=== PATIENT | male | born 1965 | race American Indian/Alaskan Native ===

== ENCOUNTER 2019-05-09 09:06 | Emergency (ER) | payer OTHER ==
--- NOTE | 2019-05-09 09:34 | Emergency Department Report ---
ED General Adult HPI - General Chief complaint: Extremity Problem,Nontraumatic Stated complaint: L LEG/HIP PAIN Time Seen by Provider: 05/09/19 09:22 Source: patient Mode of arrival: Ambulatory Limitations: No Limitations - History of Present Illness Initial comments: Patient is a 53-year-old male who presents to emergency room with complaints of left hip pain that radiates to his left gluteus radiating down his left leg that began 2 weeks ago. Denies any fall or injury. He denies any numbness, weakness, bowel or bladder incontinence. 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 he states he feels the pain when he first tries to get up. he states the pain feels better when he sits down for awhile. He denies ever having this in the past. He denies any past medical history, allergies medications or history of diabetes. He has a nonsmoker, occasional drinker, denies drug use. - Related Data Previous Rx's Medication Instructions Recorded Last Taken Type Cyclobenzaprine [Flexeril] 10 mg PO QHS PRN #10 tablet 05/09/19 Unknown Rx Ibuprofen [Motrin 600 MG tab] 600 mg PO Q8H PRN #20 tablet 05/09/19 Unknown Rx Prednisone [predniSONE 10 mg 10 mg PO .TAPER #1 tab.ds.pk 05/09/19 Unknown Rx (6-Day Pack, 21 Tabs)] Allergies Allergy/AdvReac Type Severity Reaction Status Date / Time No Known Allergies Allergy Unverified 05/09/19 09:11 ED Review of Systems ROS: Stated complaint: L LEG/HIP PAIN Other details as noted in HPI Comment: All other systems reviewed and negative ED Past Medical Hx - Past Medical History Previous Medical History?: No - Surgical History Past Surgical History?: No - Social History Smoking Status: Never Smoker Substance Use Type: None - Medications Home Medications: Home Medications Medication Instructions Recorded Confirmed Last Taken Type Cyclobenzaprine [Flexeril] 10 mg PO QHS PRN #10 tablet 05/09/19 Unknown Rx Ibuprofen [Motrin 600 MG tab] 600 mg PO Q8H PRN #20 tablet 05/09/19 Unknown Rx Prednisone [predniSONE 10 mg 10 mg PO .TAPER #1 tab.ds.pk 05/09/19 Unknown Rx (6-Day Pack, 21 Tabs)] ED Physical Exam - General Limitations: No Limitations General appearance: alert, in no apparent distress - Head Head exam: Present: atraumatic, normocephalic - Eye Eye exam: Present: normal appearance - ENT ENT exam: Present: mucous membranes moist - Neck Neck exam: Present: normal inspection, full ROM. Absent: tenderness - Respiratory Respiratory exam: Present: normal lung sounds bilaterally. Absent: respiratory distress, wheezes, rales, rhonchi, stridor, accessory muscle use, decreased breath sounds, prolonged expiratory - Cardiovascular Cardiovascular Exam: Present: regular rate, normal rhythm, normal heart sounds. Absent: systolic murmur, diastolic murmur, rubs, gallop - Extremities Exam Extremities exam: Present: other (TTP over the left gluteus and left posterior hip, no deformity, FROM of the left hip, discomfort with SLR of the left leg, intact distal pulses, sensation intact) - Back Exam Back exam: Present: normal inspection, full ROM. Absent: paraspinal tenderness, vertebral tenderness - Neurological Exam Neurological exam: Present: alert, oriented X3, CN II-XII intact, normal gait. Absent: motor sensory deficit - Psychiatric Psychiatric exam: Present: normal affect, normal mood - Skin Skin exam: Present: warm, dry, intact ED Course Vital Signs 05/09/19 05/09/19 09:13 09:54 Temperature 97.7 F Pulse Rate 59 L 62 Respiratory 16 18 Rate Blood Pressure 143/82 Blood Pressure 140/81 [Left] O2 Sat by Pulse 98 100 Oximetry ED Medical Decision Making - Medical Decision Making Patient is a 53-year-old male who presents to emergency room with complaints of left hip pain that radiates to his left gluteus radiating down his left leg that began 2 weeks ago. Denies any fall or injury. He denies any numbness, weakness, bowel or bladder incontinence. 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 he states he feels the pain when he first tries to get up. he states the pain feels better when he sits down for awhile. He denies ever having this in the past. He denies any past medical history, allergies medications or history of diabetes. He has a nonsmoker, occasional drinker, denies drug use. on exam: TTP over the left gluteus and left posterior hip, no deformity, FROM of the left hip, discomfort with SLR of the left leg, intact distal pulses, sensation intact. pts discomfort treated while in the ED. pt given prescription for steroids, muscle relaxer and anti-inflammatory. advised pt to please take medication as prescribed. do not drive or operate heavy machinery while taking muscle relaxer due to potential for drowsiness. may use ice, rest, heat, epsom salt bath. follow the stretches provided. follow up with a primary care doctor in the next 2-3 days. return to the emergency room for any new or worsening symptoms. - Differential Diagnosis sciatica, arthritis, piriformis syndrome, IT band syndrome, muscle strain Critical care attestation.: If time is entered above; I have spent that time in minutes in the direct care of this critically ill patient, excluding procedure time. ED Disposition Clinical Impression: Left hip pain Disposition: TO HOME OR SELFCARE Is pt being admited?: No Does the pt Need Aspirin: No Condition: Stable Instructions: Sciatica (ED) Additional Instructions: please take medication as prescribed. do not drive or operate heavy machinery while taking muscle relaxer due to potential for drowsiness. may use ice, rest, heat, epsom salt bath. follow the stretches provided. follow up with a primary care doctor in the next 2-3 days. return to the emergency room for any new or worsening symptoms. Prescriptions: Cyclobenzaprine [Flexeril] 10 mg PO QHS PRN #10 tablet PRN Reason: Muscle Spasm Ibuprofen [Motrin 600 MG tab] 600 mg PO Q8H PRN #20 tablet PRN Reason: Pain Prednisone [predniSONE 10 mg (6-Day Pack, 21 Tabs)] 10 mg PO .TAPER #1 tab.ds.pk Referrals: SENA WILDE MD [Primary Care Provider] - 2-3 Days Forms: Work/School Release Form(ED) Time of Disposition: 09:33 Print Language: FRENCH
[2019-05-09] MEDS ORDERED: TORADOL PO ONE (09:36)
[2019-05-09 09:54] VITALS: BP 140/81
== END 2019-05-09 09:54 | disposition home or self-care (01) ==
LOC: ED 09:06
DX: M25.552 Pain in left hip (principal); Z79.899 Other long term (current) drug therapy
CPT/HCPCS: 99282